=== PATIENT | male | born 1985 | race Caucasian/White ===

== ENCOUNTER 2022-07-02 15:55 | Emergency (ER) | payer MEDICAID, SELFPAY ==
[2022-07-02 16:00] VITALS: BP 126/81; PULSE 75; RESP 18; O2SAT 98
--- NOTE | 2022-07-02 16:13 | ED.C_ITS ---
HPI - Psych General: Chief Complaint: Psychiatric Symptoms Stated Complaint: HOMICIDAL Time Seen by Provider: 07/02/22 15:56 History of Present Illness: 36-year-old male sent in by [facility] in [place] for evaluation. Patient has a known history approximately 6 7 months ago due to a drug related cardiac arrest and has a traumatic brain injury. Patient is supposedly walking around [facility] asking other residents if they have a gun so that he can shoot staff. Upon arrival to the ER patient's not sure why he is here. Patient has a history on a chart of schizoaffective. Patient was sent to [facility] in [place] psychiatric unit for evaluation for similar incident and sent back. Patient does not have any suicidal homicidal tendencies verbalized to ER staff. Review of Systems General: Reports: ROS unobtainable due to mental status (Patient with underlying TBI. No symptoms reported by patient) Const: Reports: other (No symptoms repeat) Physical Exam Const: COMMON NORMALS: no acute distress and average body habitus HENMT: COMMON NORMALS: normocephalic and hearing grossly normal bilaterally HEAD & SCALP: normocephalic Resp: COMMON NORMALS: normal respiratory effort, No use of accessory muscles and clear to auscultation bilaterally AUSCULTATION: clear to auscultation bilaterally Cardio: COMMON NORMALS: regular rate and regular rhythm RATE: regular rate RHYTHM: regular rhythm GI: COMMON NORMALS: Soft to palpation INSPECTION: Yes GI tube present PALPATION: Yes Soft to palpation and No Tenderness to palpation present (GI) Extremity: COMMON NORMALS: capillary refill normal Neuro: SPEECH: abnormal speech Details: slurred and stuttering Psych: APPEARANCE: Yes disheveled ATTITUDE: Yes calm and Yes Withdrawn affect present MOOD & AFFECT: Yes Flat affect present OTHER: Patient's presentation consistent with TBI what appears to be no comprehension of what he says Course Vital Signs: Vital signs: Vital Signs Pulse Rate 75 07/02/22 16:00 Respiratory Rate 18 07/02/22 16:00 Blood Pressure 126/81 07/02/22 16:00 Pulse Oximetry 98 07/02/22 16:00 Oxygen Delivery Me thod 07/02/22 16:00 MDM - Psych Medical Decision Making Patient does not have any suicidal homicidal ideations while in the ER. Discussed with Dr. Kirkpatrick. He recommends patient return back to the [facility] and they can consider finding a [facility] with a [facility] unit or behavioral health unit for TBI [facility]. Patient is requesting home and does not want do any further evaluation. Patient was stable at discharge Discharge Plan Discharge Patient Disposition: Home Clinical Impression: Traumatic brain injury Condition: Stable Discharge Orders: Discharge ED (Routine); Ordered 07/02/22 Ordered By: Marcio Vergara Discharge Diet: Usual diet Discharge Activity: Resume usual activity Patient Instructions: Opioid Safety Activity Restrictions/Additional Instructions: Please consider [facility] or a TBI unit for long-term patient care Coding Level of Care Code ED Octave Board Assembler for Meghan Fwd Exam Comprehensive
--- NOTE | 2022-07-02 16:47 | PC.NURSE ---
PT was changed into paper scrubs and sitting in chair in the room. 1:1 sitter is sitting outside of room and watching patient. Per EMS PT was making threats to the skilled nursing staff and saying he wanted to kill them. PT is mentally altered and is poor historian. PT is pacing the room.
--- NOTE | 2022-07-02 18:51 | PC.NURSE ---
report given to livan huynh at [facility].
== END 2022-07-02 18:53 | disposition home or self-care (01) ==
PROVIDERS: Emergency Provider Student in an Organized Health Care Education/Training Program
DX: S06.9X0D Unspecified intracranial injury without loss of consciousness, subsequent encounter (principal); X58.XXXD Exposure to other specified factors, subsequent encounter
CPT/HCPCS: 99283